=== PATIENT | female | born 1965 | race African-American/Black ===

== ENCOUNTER 2017-05-11 18:33 | Emergency (ER) | payer MEDICAID, OTHER ==
[~2017-05-11] VITALS: Ht 170.2 cm; Wt 80.0 kg
[2017-05-11 18:42] VITALS: BP 144/89
== END 2017-05-12 03:05 | disposition left against medical advice (07) ==
LOC: ER 18:50
DX: M54.5 Low back pain (principal); Z53.21 Procedure and treatment not carried out due to patient leaving prior to being seen by health care provider

== ENCOUNTER 2020-12-06 13:06 | Emergency (ER) | payer OTHER ==
[~2020-12-06] VITALS: Ht 162.6 cm; Wt 77.0 kg
[2020-12-06] MEDS ORDERED: IBUPROFEN 600MG TABLET PO STA (17:29)
[2020-12-06 18:17] VITALS: BP 146/96
[2020-12-06] MEDS ORDERED: CYCL5TAB PO (18:18)
[2020-12-06] MEDS ORDERED: NAPR-681 PO (18:18)
[2020-12-06] MEDS ORDERED: DICL75TA5 PO (18:28)
== END 2020-12-06 18:29 | disposition home or self-care (01) ==
LOC: ER 13:06
DX: R07.81 Pleurodynia (principal); M54.50 Low back pain, unspecified; J45.909 Unspecified asthma, uncomplicated; M19.90 Unspecified osteoarthritis, unspecified site; V43.52XA Car driver injured in collision with other type car in traffic accident, initial encounter; Y93.89 Activity, other specified; Y92.410 Unspecified street and highway as the place of occurrence of the external cause; Z85.07 Personal history of malignant neoplasm of pancreas; Z96.649 Presence of unspecified artificial hip joint
CPT/HCPCS: 71045; 72100; 99284